=== PATIENT | female | born 1980 | race Caucasian/White ===

== ENCOUNTER 2019-10-22 20:53 | Emergency (ER) | payer MEDICAID, OTHER ==
[2019-10-22] MEDS ORDERED: SODIUM CHLORIDE 0.9% 1000ML 1,000 ML IVS ONE (21:01)
[2019-10-22] MEDS ORDERED: ACETAMINOPHEN 500 MG TAB PO ONE (21:01)
[2019-10-22 21:08] VITALS: TEMP 99
--- NOTE | 2019-10-22 21:10 | ED.PDOC ---
History of Present Illness - General Time Seen by Provider: 10/22/19 21:00 - History of Present Illness Initial Comments: 39 yo F PMH Anemia Migraines and Anxiety/Depression (denies hallucinations SI HI and is without suicide plan) presents to ED Mother at bedside c/o intermittent nausea generalized weakness and headache for 3 days. Headache was worse at 2pm today and now only slight. Nausea was worse earlier today and now only slight. Denies fever cough sob recent travel or contact with covid19 denies fever chills vomiting diarrhea chest pain sob diaphoresis. No change in diet rest bowel or bladder but does report some decreased appetite. Admits smoking denies drinking admits FH HTN DM has PMD for follow up no other c/o today. PPE worn-N95 surgical mask with attached face shield over N95 gloves and face shield over that Allergies/Adverse Reactions: Allergies Sertraline [From Zoloft] Adverse Reaction (Verified 10/22/19 21:13) Home Medications: Ambulatory Orders Acetaminophen [Tylenol] 650 mg PO Q6H PRN #30 tab 10/22/19 Citalopram Hydrobromide 10 mg PO 10/22/19 Cyanocobalamin [B-12] 10/22/19 Ferrous Sulfate [Fe Tabs] 325 mg PO 10/22/19 Norgestimate-Ethinyl Estradiol [Femynor 0.25-35 mg-Mcg] 1 tab PO 10/22/19 Ondansetron Tab [Zofran Tab] 4 mg PO TID PRN 5 Days #15 tab 10/22/19 Trazodone HCl [Trazodone Hydrochloride] 50 mg PO 10/22/19 Review of Systems - Review of Systems Constitutional: States: see HPI EENTM: States: see HPI Respiratory: States: see HPI Cardiology: States: see HPI Gastrointestinal/Abdominal: States: see HPI Genitourinary: States: see HPI Musculoskeletal: States: see HPI Skin: States: see HPI Neurological: States: see HPI Endocrine: States: see HPI Hematologic/Lymphatic: States: see HPI Family Medical History - Family History Mother Living Status: Still Living Hx Family Diabetes: Yes Father Hx Family Hypertension: Yes Physical Exam - Physical Exam General Appearance: No apparent distress Eye Exam: bilateral normal Ears, Nose, Throat: normal ENT inspection Neck: non-tender, full range of motion Respiratory: no respiratory distress Cardiovascular/Chest: regular rate, rhythm Gastrointestinal/Abdominal: non tender, soft Rectal Exam: deferred Back Exam: normal inspection Extremity: normal range of motion, non-tender Neurologic: no motor/sensory deficits Skin Exam: normal color Progress - Progress Progress: 10/22/19 21:10 A/P-Anemia, Generalized Weakness, Generalized Headache, Nausea-iv bolus tylenol reglan benadryl decadron cbc cmp lipase ua uhcg ct head reassess 10/22/19 21:33 Laboratory Tests 10/22/19 10/22/19 21:14 21:20 PT 9.3 INR < 1.00 PTT (SP) 21.7 L Urine HCG, Qual Negative 10/22/19 21:56 Laboratory Tests 10/22/19 10/22/19 10/22/19 21:14 21:14 21:14 WBC 8.4 RBC 4.95 Hgb 8.9 L Hct 29.7 L MCV 60.1 L MCH 18.0 L MCHC 30.0 L RDW 20.2 H Plt Count 182 MPV 8.7 Absolute Neuts (auto) 6.40 Absolute Lymphs (auto) 1.30 Absolute Monos (auto) 0.40 Absolute Eos (auto) 0.20 Absolute Basos (auto) 0.10 Neutrophils % 76.0 Lymphocytes % 15.4 L Monocytes % 5.2 Eosinophils % 2.0 Basophils % 1.4 Normal RBC Morphology Stain quality accept PT 9.3 INR < 1.00 PTT (SP) 21.7 L Sodium 138 Potassium 3.3 L Chloride 104 Carbon Dioxide 25 Anion Gap 12.3 BUN 9 Creatinine 0.76 BUN/Creatinine Ratio 11.8 Random Glucose 138 H Serum Osmolality 276.6 Calcium 8.5 Total Bilirubin 0.5 AST 19 ALT 14 Alkaline Phosphatase 40 L Serum Total Protein 7.5 Albumin 3.7 Globulin 3.8 H Albumin/Globulin Ratio 1.0 L Lipase 31 Urine Color Urine Appearance Urine pH Ur Specific [place] Urine Protein Urine Glucose (UA) Urine Ketones Urine Blood Urine Nitrite Urine Bilirubin Urine Urobilinogen Ur Leukocyte Esterase Urine RBC Urine WBC Ur Epithelial Cells Urine Bacteria Urine HCG, Qual 10/22/19 10/22/19 21:17 21:20 WBC RBC Hgb Hct MCV MCH MCHC RDW Plt Count MPV Absolute Neuts (auto) Absolute Lymphs (auto) Absolute Monos (auto) Absolute Eos (auto) Absolute Basos (auto) Neutrophils % Lymphocytes % Monocytes % Eosinophils % Basophils % Normal RBC Morphology PT INR PTT (SP) Sodium Potassium Chloride Carbon Dioxide Anion Gap BUN Creatinine BUN/Creatinine Ratio Random Glucose Serum Osmolality Calcium Total Bilirubin AST ALT Alkaline Phosphatase Serum Total Protein Albumin Globulin Albumin/Globulin Ratio Lipase Urine Color Yellow Urine Appearance Clear Urine pH 5.5 Ur Specific [place] 1.020 Urine Protein Negative Urine Glucose (UA) Negative Urine Ketones Negative Urine Blood Negative Urine Nitrite Negative Urine Bilirubin Negative Urine Urobilinogen 0.2 Ur Leukocyte Esterase Trace H Urine RBC 0-1 Urine WBC 3-5 H Ur Epithelial Cells 1-3 Urine Bacteria 0 Urine HCG, Qual Negative EXAM: Head HISTORY: 39 years Female headache COMPARISON: None TECHNIQUE: Contiguous axial images of the head were obtained from the skull base through the vertex without IV contrast followed by multiplanar reformats. This exam was performed according to our departmental dose-optimization program, which includes automated exposure control, adjustment of the mA and/or kV according to patient size and/or use of iterative reconstruction technique. FINDINGS: Brain volume is commensurate with patient age. No hydrocephalus. No midline shift, mass effect or abnormal extraaxial collection. No acute intracranial hemorrhage or infarct. White matter is within normal limits. Orbital contents are unremarkable. The paranasal sinuses and mastoid air cells are well pneumatized. No acute calvarial abnormality. IMPRESSION: 1. No acute intracranial pathology. Electronically signed by: Stewart Low MD 10/22/2019 9:50 PM CDT EXAM DESCRIPTION: Chest,1 View CLINICAL HISTORY: 39 years Female, nausea COMPARISON: None TECHNIQUE: Single AP chest radiograph. FINDINGS: Clear lungs. No pneumothorax or pleural effusion. Normal cardiomediastinal contour. Normal osseous structures. IMPRESSION: 1. No acute cardiopulmonary process. Electronically signed by: Stewart Low MD 10/22/2019 9:50 PM CDT Departure - Departure Clinical Impression: Generalized weakness, Generalized headache, Nausea Anemia Qualifiers: Anemia type: unspecified type Qualified Code(s): D64.9 - Anemia, unspecified Disposition: Discharge to Home or Self Care Condition: Good Referrals: Eugene Gomez MD [Primary Care Provider] - 1-2 Days Prescriptions: Acetaminophen [Tylenol] 650 mg PO Q6H PRN #30 tab PRN Reason: Pain Ondansetron Tab [Zofran Tab] 4 mg PO TID PRN 5 Days #15 tab PRN Reason: Nausea Home Medications: Ambulatory Orders Acetaminophen [Tylenol] 650 mg PO Q6H PRN #30 tab 10/22/19 Citalopram Hydrobromide 10 mg PO 10/22/19 Cyanocobalamin [B-12] 10/22/19 Ferrous Sulfate [Fe Tabs] 325 mg PO 10/22/19 Norgestimate-Ethinyl Estradiol [Femynor 0.25-35 mg-Mcg] 1 tab PO 10/22/19 Ondansetron Tab [Zofran Tab] 4 mg PO TID PRN 5 Days #15 tab 10/22/19 Trazodone HCl [Trazodone Hydrochloride] 50 mg PO 10/22/19
--- NOTE | 2019-10-22 21:51 | CT ---
EXAM: Head HISTORY: 39 years Female headache COMPARISON: None TECHNIQUE: Contiguous axial images of the head were obtained from the skull base through the vertex without IV contrast followed by multiplanar reformats. This exam was performed according to our departmental dose-optimization program, which includes automated exposure control, adjustment of the mA and/or kV according to patient size and/or use of iterative reconstruction technique. FINDINGS: Brain volume is commensurate with patient age. No hydrocephalus. No midline shift, mass effect or abnormal extraaxial collection. No acute intracranial hemorrhage or infarct. White matter is within normal limits. Orbital contents are unremarkable. The paranasal sinuses and mastoid air cells are well pneumatized. No acute calvarial abnormality. IMPRESSION: 1. No acute intracranial pathology. Electronically signed by: Stewart Low MD 10/22/2019 9:50 PM CDT
--- NOTE | 2019-10-22 21:52 | RAD ---
EXAM DESCRIPTION: Chest,1 View CLINICAL HISTORY: 39 years Female, nausea COMPARISON: None TECHNIQUE: Single AP chest radiograph. FINDINGS: Clear lungs. No pneumothorax or pleural effusion. Normal cardiomediastinal contour. Normal osseous structures. IMPRESSION: 1. No acute cardiopulmonary process. Electronically signed by: Stewart Low MD 10/22/2019 9:50 PM CDT
[2019-10-22 22:03] VITALS: BP 103/69; O2SAT 98
== END 2019-10-22 22:07 | disposition home or self-care (01) ==
LOC: ER 20:53
DX: R53.1 Weakness (principal); R51 Headache; R11.0 Nausea; D64.9 Anemia, unspecified
CPT/HCPCS: 36415; 70450; 71045; 80053; 81001; 81025; 83690; 85025; 85610; 85730; J7030